=== PATIENT | male | born 1975 | race Caucasian/White ===

== ENCOUNTER 2022-03-09 21:55 | Emergency (ER) | payer OTHER ==
[2022-03-09 22:05] VITALS: BP 130/80; PULSE 78; RESP 18; TEMP 98.1; BMI 29.9
[2022-03-09] MEDS ORDERED: predniSONE 20 MG TABLET (UD) PO ONE (22:54)
[2022-03-09] MEDS ORDERED: FAMOTIDINE 10 MG TABLET PO ONE (22:55)
[2022-03-09] MEDS ORDERED: diphenhydrAMINE HCL 25 MG CAPSULE (FP) PO ONE ×2 (22:55→23:23)
[2022-03-09] MEDS ORDERED: FAMOTIDINE 20 MG TABLET ONE (23:23)
[2022-03-09] MEDS ORDERED: predniSONE 20 MG TABLET (UD) ONE (23:23)
== END 2022-03-09 23:47 | disposition home or self-care (01) ==
LOC: JER 21:55
DX: T78.40XA Allergy, unspecified, initial encounter (principal)
CPT/HCPCS: 99283-25